=== PATIENT | male | born 1960 | race Caucasian/White ===

== ENCOUNTER 2016-06-20 20:52 | Emergency (ER) ==
[2016-06-20 21:00] VITALS: BP 170/103; TEMP 100; BMI 24.3
[2016-06-20] MEDS ORDERED: SOLU-MEDROL 125 MG IM STA (21:29)
[2016-06-20] MEDS ORDERED: CLARITIN PO STA (21:29)
--- NOTE | 2016-06-20 21:32 | ED.PDOC ---
General ED Provider: Dr. ROBYN ORR Chief Complaint: Rash Stated Complaint: Patient is a 55 year old male who comes to the ER with recurrent rash to legs, back.Has had steroids shots in the past that helped. His Current rash is 3 months old nad is Itchy. He states that he has seen founder and chief technical officer who took biopsies. States no one knows what kind of rash it is. Time Seen by Physician: 21:30 Mode of Arrival: Walk-In Information Source: Patient Exam Limitations: No limitations Primary Care Provider: JASIEL MAGDALENO Nursing and Triage Documentation Reviewed and Agree: Yes Skin Complaint Exam - Skin Rash/Itching Complaint/Exam Onset/Duration: weeks Symptoms Are: Still present Initial Severity: Moderate Current Severity: Moderate Location: Generalized Potential Exposures: Reports: Unknown Prior Treatment: Benadryl Aggravating: Reports: None Alleviating: Reports: None Associated Signs and Symptoms: Denies: Difficulty breathing, Fever, Chills Skin Findings: Present: Target lesions Differential Diagnoses: Contact Dermatitis, Scabies, Urticaria, Viral Exanthema Review of Systems - Review Of Systems Constitutional: Reports: No symptoms Eyes: Reports: No symptoms Ears, Nose, Mouth, Throat: Reports: No symptoms Respiratory: Reports: No symptoms Cardiac: Reports: No symptoms GI: Reports: No symptoms : Reports: No symptoms Musculoskeletal: Reports: No symptoms Skin: Reports: Rash, Other (itching. ) Neurological: Reports: Anxiety Endocrine: Reports: No symptoms Hematologic/Lymphatic: Reports: No symptoms All Other Systems: Reviewed and Negative Past Medical History - Past Medical History Previously Healthy: Yes Endocrine: Reports: Dyslipidemia Cardiovascular: Reports: Hypertension Respiratory: Reports: COPD Hematological: Reports: None Gastrointestinal: Reports: None Genitourinary: Reports: None Neuro/Psych: Reports: Anxiety, Depression Musculoskeletal: Reports: Arthritis, Joint Pain (chronic neck pain ) Cancer: Reports: None Other Pertinent Past Medical History: Lymes disease 2015, Treated for RMSF 3-4 years ago, history of shingles , - Surgical History General Surgical History: Reports: Appendectomy, Cholecystectomy, Orthopedic ( neck shoulder thumb, neck fusion ) - Family History Family History: Reports: Unknown - Social History Smoking Status: Current every day smoker, Light tobacco smoker Hx Substance Use: No Alcohol Screening: Occasionally Physical Exam - Physical Exam Appearance: Ill-appearing, Well-nourished Ill-appearing: Moderate Eyes: MIRZA, EOMI, Conjunctiva clear ENT: Ears normal, Nose normal, Oropharynx normal Neck: Supple Respiratory: Airway patent, Breath sounds clear, Breath sounds equal, Respirations nonlabored Cardiovascular: RRR, Pulses normal, No rub, No murmur GI/: Soft, Nontender, No masses, Bowel sounds normal, No Organomegaly Musculoskeletal: Normal strength, ROM intact, No edema, No calf tenderness Skin: Warm, Dry Neurological: Sensation intact, Motor intact, Reflexes intact, Cranial nerves intact, Alert, Oriented Psychiatric: Affect appropriate, Mood appropriate Critical Care Note - Critical Care Note Total Time (mins): 0 Course - Course Orders, Labs, Meds: Orders Category Date Time Status Loratadine [Claritin] MEDS 06/20/16 21:29 Discontinued 10 mg PO ONCE STA Methylprednisolone Sod Succ/Pf [Solu-Medrol 125 mg] MEDS 06/20/16 21:29 Discontinued 125 mg IM ONCE STA Medications Discontinued Medications Generic Name Dose Route Start Last Admin Trade Name Freq PRN Reason Stop Dose Admin Loratadine 10 mg 06/20/16 21:29 06/20/16 21:38 Claritin PO 06/20/16 21:30 10 mg ONCE STA Administration Methylprednisolone Sodium Succinate 125 mg 06/20/16 21:29 06/20/16 21:39 Solu-Medrol 125 Mg IM 06/20/16 21:30 125 mg ONCE STA Administration Vital Signs: Temp Pulse Resp BP Pulse Ox 06/20/16 20:54 100.0 F H 71 20 170/103 H 96 Departure - Departure Time of Disposition: 21:43 Disposition: HOME SELF-CARE Discharge Problem: Pruritic rash Instructions: Dermatitis (ED) Condition: Good Pt referred to PMD for follow-up: Yes Additional Instructions: Take medications as prescribed. Follow up with PCP in 3 day Prescriptions: Methylprednisolone [Medrol Dosepak] 4 mg PO DIRECTED #1 pkg Allergies/Adverse Reactions: Allergies bacitracin [From Neosporin ([id number])] Adverse Reaction (Verified 05/05/16 09:43) neomycin [From Neosporin ([id number])] Adverse Reaction (Verified 05/05/16 09 :43) polymyxin B [From Neosporin ([id number]-htf-[id number])] Adverse Reaction (Verified 09:43) Tetanus Vaccines and Toxoid [Tetanus Vaccines & Toxoid] Adverse Reaction ( Verified 05/05/16 09:43) Home Medications: Ambulatory Orders Clonazepam 0.5 mg PO TID 01/26/15 Methylprednisolone [Medrol Dosepak] 4 mg PO DIRECTED #1 pkg 06/20/16 Disposition Discussed With: Patient
== END 2016-06-20 21:57 | disposition home or self-care (01) ==
LOC: ED 20:52
DX: R21 Rash and other nonspecific skin eruption (principal); L29.9 Pruritus, unspecified; F17.210 Nicotine dependence, cigarettes, uncomplicated
CPT/HCPCS: 96372; 99282

== ENCOUNTER 2016-08-13 14:24 | Emergency (ER) ==
[2016-08-13 14:24] VITALS: BMI 24.3
[2016-08-13 14:28] VITALS: BP 159/84; TEMP 97.8
[2016-08-13] MEDS ORDERED: MORPHINE 4 MG/ML SYRINGE IM STA (16:35)
[2016-08-13] MEDS ORDERED: ZOFRAN 4 MG/2 ML IM STA (16:35)
[2016-08-13] MEDS ORDERED: DECADRON 4 MG/ML SDV IM STA (16:40)
[2016-08-13] MEDS ORDERED: BENADRYL IM STA (16:42)
--- NOTE | 2016-08-13 17:18 | ED.PDOC ---
General ED Provider: Dr. GARRETT COVARRUBIAS Chief Complaint: Rash Stated Complaint: rash Time Seen by Physician: 14:30 Mode of Arrival: Walk-In Information Source: Patient Exam Limitations: No limitations Nursing and Triage Documentation Reviewed and Agree: Yes Skin Complaint Exam - Skin Rash/Itching Complaint/Exam Symptoms Are: Still present Initial Severity: Mild Current Severity: None Potential Exposures: Reports: Unknown Aggravating: Reports: None Alleviating: Reports: None Associated Signs and Symptoms: Denies: Difficulty breathing, Fever, Chills Related History: Similar episode Differential Diagnoses: Allergic Reaction Review of Systems - Review Of Systems Constitutional: Reports: No symptoms Eyes: Reports: No symptoms Ears, Nose, Mouth, Throat: Reports: No symptoms Respiratory: Reports: No symptoms Cardiac: Reports: No symptoms GI: Reports: No symptoms : Reports: No symptoms Musculoskeletal: Reports: No symptoms Skin: Reports: Rash Neurological: Reports: No symptoms Endocrine: Reports: No symptoms Hematologic/Lymphatic: Reports: No symptoms All Other Systems: Reviewed and Negative Past Medical History - Past Medical History Previously Healthy: Yes Endocrine: Reports: Dyslipidemia Cardiovascular: Reports: Hypertension Respiratory: Reports: COPD Hematological: Reports: None Gastrointestinal: Reports: None Genitourinary: Reports: None Neuro/Psych: Reports: Anxiety, Depression Musculoskeletal: Reports: Arthritis, Joint Pain (chronic neck pain ) Cancer: Reports: None Other Pertinent Past Medical History: Lymes disease 2015, Treated for RMSF 3-4 years ago, history of shingles , - Surgical History General Surgical History: Reports: Appendectomy, Cholecystectomy, Orthopedic ( neck shoulder thumb, neck fusion ) - Family History Family History: Reports: Unknown - Social History Smoking Status: Current every day smoker, Light tobacco smoker Hx Substance Use: No Alcohol Screening: Occasionally Physical Exam - Physical Exam Appearance: Well-appearing, No pain distress, Well-nourished Eyes: MIRZA, EOMI, Conjunctiva clear ENT: Ears normal, Nose normal, Oropharynx normal Respiratory: Airway patent, Breath sounds clear, Breath sounds equal, Respirations nonlabored Cardiovascular: RRR, Pulses normal, No rub, No murmur GI/: Soft, Nontender, No masses, Bowel sounds normal, No Organomegaly Musculoskeletal: Normal strength, ROM intact, No edema, No calf tenderness Skin: Warm, Dry (macular rash arms legs ) Neurological: Sensation intact, Motor intact, Reflexes intact, Cranial nerves intact, Alert, Oriented Psychiatric: Affect appropriate, Mood appropriate Critical Care Note - Critical Care Note Total Time (mins): 0 Course - Course Orders, Labs, Meds: Orders Category Date Time Status Dexamethasone 4 mg/ml Inj [Decadron 4 mg/ml Sdv] MEDS 08/13/16 16:40 Discontinued 4 mg IM ONCE STA Diphenhydramine Inj [Benadryl] MEDS 08/13/16 16:42 Discontinued 25 mg IM ONCE STA Medications Discontinued Medications Generic Name Dose Route Start Last Admin Trade Name Freq PRN Reason Stop Dose Admin Dexamethasone Sodium Phosphate 4 mg 08/13/16 16:40 Decadron 4 Mg/Ml Sdv IM 08/13/16 16:41 ONCE STA Diphenhydramine HCl 25 mg 08/13/16 16:42 Benadryl IM 08/13/16 16:43 ONCE STA Vital Signs: Temp Pulse Resp BP Pulse Ox 08/13/16 14:24 97.8 F 69 20 159/84 H 95 Departure - Departure Time of Disposition: 17:17 Disposition: HOME SELF-CARE Discharge Problem: Pruritic rash Instructions: Acute Rash (ED) Condition: Good Pt referred to PMD for follow-up: No Additional Instructions: Please call your Family Physician as soon as possible to schedule a follow-up appointment. Prescriptions: Hydrocodone/Acetaminophen [Bethesda 5-325 Tablet] 1 each PO Q6HR PRN #20 tablet PRN Reason: PAIN Allergies/Adverse Reactions: Allergies bacitracin [From Neosporin ([id number])] Adverse Reaction (Verified 08/13/16 14:28) neomycin [From Neosporin ([id number]-ivk-[id number])] Adverse Reaction (Verified 08/13/16 14 :28) polymyxin B [From Neosporin ([id number]-unl-ypizn)] Adverse Reaction (Verified 14:28) Tetanus Vaccines and Toxoid [Tetanus Vaccines & Toxoid] Adverse Reaction ( Verified 08/13/16 14:28) Home Medications: Ambulatory Orders Clonazepam 0.5 mg PO TID 01/26/15 Hydrocodone/Acetaminophen [Bethesda 5-325 Tablet] 1 each PO Q6HR PRN #20 tablet
== END 2016-08-13 17:45 | disposition home or self-care (01) ==
LOC: ED 14:24
DX: R21 Rash and other nonspecific skin eruption (principal); L29.9 Pruritus, unspecified; F17.210 Nicotine dependence, cigarettes, uncomplicated
CPT/HCPCS: 96372; 99283

== ENCOUNTER 2016-11-19 10:18 | Inpatient (IN) ==
[2016-11-19 10:19] VITALS: BMI 24.3
--- NOTE | 2016-11-19 10:46 | ED.PDOC ---
General ED Provider: Dr. GARRETT COVARRUBIAS Chief Complaint: Bite Stated Complaint: dog bite Time Seen by Physician: 10:20 (dog bite of te right hand 2 days ago) Mode of Arrival: Walk-In Information Source: Patient Exam Limitations: No limitations Nursing and Triage Documentation Reviewed and Agree: Yes Musculoskeletal Complaint Exam - Hand/Wrist Complaint/Exam Location of Pain: Reports: Right, Hand Mechanism of Injury: Reports: Trauma (dog bite righhand ) Onset/Duration: 2 days Symptoms Are: Still present Onset of Pain: Reports: Days Initial Severity: Moderate Current Severity: Moderate Location: Reports: Discrete (right hand see photos) Character: Reports: Dull, Aching, Spasmodic Alleviating: Reports: Rest Aggravating: Reports: Movement Associated Signs and Symptoms: Reports: Swelling, Redness. Denies: Bruising, Fever, Weakness, Numbness, Tingling Dominant Hand: Right Related Surgical History: Reports: None Hand/Wrist Findings: Present: Swelling Compartment Syndrome Risk Factors: Present: Pain Differential Diagnoses: Cellulitis Review of Systems - Review Of Systems Constitutional: Reports: No symptoms Eyes: Reports: No symptoms Ears, Nose, Mouth, Throat: Reports: No symptoms Respiratory: Reports: No symptoms Cardiac: Reports: No symptoms GI: Reports: No symptoms : Reports: No symptoms Musculoskeletal: Reports: Other (dog bite right hand see photos) Skin: Reports: No symptoms Neurological: Reports: No symptoms Endocrine: Reports: No symptoms Hematologic/Lymphatic: Reports: No symptoms All Other Systems: Reviewed and Negative Past Medical History - Past Medical History Previously Healthy: Yes Endocrine: Reports: Dyslipidemia Cardiovascular: Reports: Hypertension Respiratory: Reports: COPD Hematological: Reports: None Gastrointestinal: Reports: None Genitourinary: Reports: None Neuro/Psych: Reports: Anxiety, Depression Musculoskeletal: Reports: Arthritis, Joint Pain (chronic neck pain ) Cancer: Reports: None Other Pertinent Past Medical History: Lymes disease 2015, Treated for RMSF 3-4 years ago, history of shingles , - Surgical History General Surgical History: Reports: Appendectomy, Cholecystectomy, Orthopedic ( neck shoulder thumb, neck fusion ) - Family History Family History: Reports: Unknown - Social History Smoking Status: Current every day smoker, Light tobacco smoker Hx Substance Use: No Alcohol Screening: None - Immunizations Tetanus Shot up to Date: No Physical Exam - Physical Exam Appearance: Well-appearing, No pain distress, Well-nourished Eyes: MIRZA, EOMI, Conjunctiva clear ENT: Ears normal, Nose normal, Oropharynx normal Respiratory: Airway patent, Breath sounds clear, Breath sounds equal, Respirations nonlabored Cardiovascular: RRR, Pulses normal, No rub, No murmur GI/: Soft, Nontender, No masses, Bowel sounds normal, No Organomegaly Musculoskeletal: Limited ROM ( due to pain edema right hand see photos) Skin: Warm, Dry, Normal color Neurological: Sensation intact, Motor intact, Reflexes intact, Cranial nerves intact, Alert, Oriented Psychiatric: Affect appropriate, Mood appropriate Critical Care Note - Critical Care Note Total Time (mins): 0 Course - Course Vital Signs: Temp Pulse Resp BP Pulse Ox 11/19/16 10:19 98.5 F 86 20 160/82 H 95 Departure - Departure Time of Disposition: 10:48 Disposition: HOME SELF-CARE Discharge Problem: Cellulitis of right hand Instructions: Cellulitis (ED) Condition: Good Pt referred to PMD for follow-up: No Additional Instructions: Please call your Family Physician as soon as possible to schedule a follow-up appointment. Allergies/Adverse Reactions: Allergies bacitracin [From Neosporin ([id number])] Adverse Reaction (Verified 11/19/16 10:25) neomycin [From Neosporin ([id number]-qtb-[id number])] Adverse Reaction (Verified 11/19/16 10 :25) polymyxin B [From Neosporin (jga-fvx-siptt)] Adverse Reaction (Verified 10:25) Tetanus Vaccines and Toxoid [Tetanus Vaccines & Toxoid] Adverse Reaction ( Verified 11/19/16 10:25) Home Medications: Ambulatory Orders 1 [No Reported Medications] 11/19/16 Disposition Discussed With: Patient
[2016-11-19] MEDS ORDERED: ROCEPHIN 1 GM in SODIUM CHLORIDE 50 ML IV STA (10:58)
[2016-11-19] MEDS ORDERED: SODIUM CHLORIDE 1,000 ML IV SCH (11:00)
[2016-11-19] MEDS ORDERED: ROCEPHIN ONE (11:18)
[2016-11-19] MEDS ORDERED: MORPHINE 4 MG/ML SYRINGE IVP STA (11:53)
[2016-11-19] MEDS: TORADOL IVP PRN (12:13)
[2016-11-19 12:25] LABS: BASOPHILS # (AUTO) 0.1 K/uL (0-0.2); BASOPHILS % (AUTO) 0.6 % (0.0-3.0); EOSINOPHILS # (AUTO) 0.2 K/ul (0.0-0.7); EOSINOPHILS % (AUTO) 1.9 % (0.0-7.0); HEMATOCRIT 47.8 % (42.0-52.0); HEMOGLOBIN 16.4 g/dl (14.0-18.0); IMMATURE GRANULOCYTE % (AUTO) 0.6 % (0.0-5.0); LYMPHOCYTES # (AUTO) 2.3 K/uL (0.60-3.4); LYMPHOCYTES % (AUTO) 26.8 (10.0-50.0); MEAN CORPUSCULAR HEMOGLOBIN 29.7 pg (27.0-31.0); MEAN CORPUSCULAR HGB CONC 34.3 (31.8-35.4); MEAN CORPUSCULAR VOLUME 86.4 fl (80.0-94.0); MONOCYTES # (AUTO) 0.9 K/uL (0.4-2.0); MONOCYTES % (AUTO) 10.6 (0-10); NEUTROPHILS # (AUTO) 5.1 K/ul (2.0-6.9); NEUTROPHILS % (AUTO) 59.5; PLATELET COUNT 207 10^3/uL (140-440); RED BLOOD COUNT 5.53 10^6/ul (4.70-6.10); WHITE BLOOD COUNT 8.61 K/ul (4.2-10.2)
[2016-11-19] MEDS: CLEOCIN 300 MG in SODIUM CHLORIDE 100 ML IV SCH ×3 (12:41→23:12)
[2016-11-19 12:56] LABS: ALBUMIN 3.6 g/dL (3.4-5.0); ALBUMIN/GLOBULIN RATIO 0.9; ANION GAP 13.9; BILIRUBIN,TOTAL 0.43 mg/dL (0.00-1.20); BUN/CREATININE RATIO 11.76; CALCIUM 9.6 mg/dL (8.2-10.2); CREATININE 0.85 mg/dL (0.60-1.10); POTASSIUM 3.9 mmol/L (3.5-5.1); TOTAL PROTEIN 7.6 g/dL (6.4-8.2)
[2016-11-19 13:04] LABS: ERYTHROCYTE SEDIMENTATION RATE 24 mm/hr (0-15); ESR INTERNAL QC INTERNAL QC VALID
[2016-11-19] MEDS: ZOFRAN 4 MG/2 ML IVP SCH ×2 (14:50→17:33)
--- NOTE | 2016-11-19 15:13 | CT ---
Exam: CT of the right hand with intravenous contrast. Comparison: None available. Reason for exam: Dog bite with cellulitis. FINDINGS: No acute fracture or dislocation. Degenerative disease is seen within the wrist. There are mild inflammatory changes seen within the dorsal subcutaneous soft tissues. No discrete fluid c ollection or abscess formation. The cortices of the right hand appear intact. Impression: 1. No acute fracture or dislocation in the right hand. 2. No discrete fluid collection or abscess formation. 3. Inflammatory changes in the subcutaneous fat. If clinical concern exists for osteomyelitis, MRI may be performed.
[2016-11-19] MEDS: SODIUM CHLORIDE 1,000 ML IV SCH (19:35)
[2016-11-20] MEDS: TORADOL IVP PRN ×2 (01:35→13:23)
[2016-11-20 04:55] LABS: BASOPHILS # (AUTO) 0.1 K/uL (0-0.2); BASOPHILS % (AUTO) 1.2 % (0.0-3.0); EOSINOPHILS # (AUTO) 0.2 K/ul (0.0-0.7); EOSINOPHILS % (AUTO) 2.4 % (0.0-7.0); HEMATOCRIT 47.6 % (42.0-52.0); HEMOGLOBIN 15.8 g/dl (14.0-18.0); IMMATURE GRANULOCYTE % (AUTO) 1.3 % (0.0-5.0); LYMPHOCYTES # (AUTO) 2.4 K/uL (0.60-3.4); LYMPHOCYTES % (AUTO) 34.6 (10.0-50.0); MEAN CORPUSCULAR HGB CONC 33.2 (31.8-35.4); MEAN CORPUSCULAR VOLUME 87.5 fl (80.0-94.0); MONOCYTES # (AUTO) 0.7 K/uL (0.4-2.0); MONOCYTES % (AUTO) 9.7 (0-10); NEUTROPHILS # (AUTO) 3.5 K/ul (2.0-6.9); NEUTROPHILS % (AUTO) 50.8; PLATELET COUNT 209 10^3/uL (140-440); RED BLOOD COUNT 5.44 10^6/ul (4.70-6.10); WHITE BLOOD COUNT 6.79 K/ul (4.2-10.2)
[2016-11-20 05:19] LABS: ALBUMIN 3.2 g/dL (3.4-5.0); ALBUMIN/GLOBULIN RATIO 0.82; ANION GAP 12.4; BILIRUBIN,TOTAL 0.32 mg/dL (0.00-1.20); CALCIUM 8.9 mg/dL (8.2-10.2); POTASSIUM 4.4 mmol/L (3.5-5.1); TOTAL PROTEIN 7.1 g/dL (6.4-8.2)
[2016-11-20] MEDS: ZOFRAN 4 MG/2 ML IVP SCH ×2 (05:47)
[2016-11-20] MEDS: CLEOCIN 300 MG in SODIUM CHLORIDE 100 ML IV SCH ×4 (05:54→23:26)
[2016-11-20] MEDS: ZESTRIL PO SCH (08:36)
[2016-11-20] MEDS ORDERED: ZOFRAN 4 MG/2 ML IVP PRN (09:34)
[2016-11-20] MEDS: SODIUM CHLORIDE 1,000 ML IV SCH (21:36)
[2016-11-21 04:25] LABS: BASOPHILS # (AUTO) 0.1 K/uL (0-0.2); BASOPHILS % (AUTO) 1.1 % (0.0-3.0); EOSINOPHILS # (AUTO) 0.2 K/ul (0.0-0.7); EOSINOPHILS % (AUTO) 2.8 % (0.0-7.0); HEMATOCRIT 46.7 % (42.0-52.0); HEMOGLOBIN 15.6 g/dl (14.0-18.0); IMMATURE GRANULOCYTE % (AUTO) 1.2 % (0.0-5.0); LYMPHOCYTES # (AUTO) 2.3 K/uL (0.60-3.4); LYMPHOCYTES % (AUTO) 29.9 (10.0-50.0); MEAN CORPUSCULAR HEMOGLOBIN 29.2 pg (27.0-31.0); MEAN CORPUSCULAR HGB CONC 33.4 (31.8-35.4); MEAN CORPUSCULAR VOLUME 87.5 fl (80.0-94.0); MONOCYTES # (AUTO) 0.7 K/uL (0.4-2.0); MONOCYTES % (AUTO) 9.7 (0-10); NEUTROPHILS # (AUTO) 4.2 K/ul (2.0-6.9); NEUTROPHILS % (AUTO) 55.3; PLATELET COUNT 198 10^3/uL (140-440); RED BLOOD COUNT 5.34 10^6/ul (4.70-6.10); WHITE BLOOD COUNT 7.52 K/ul (4.2-10.2)
[2016-11-21 04:48] LABS: ALBUMIN 3.1 g/dL (3.4-5.0); ALBUMIN/GLOBULIN RATIO 0.84; ANION GAP 12.8; BILIRUBIN,TOTAL 0.34 mg/dL (0.00-1.20); BUN/CREATININE RATIO 12.74; CALCIUM 8.7 mg/dL (8.2-10.2); CREATININE 1.02 mg/dL (0.60-1.10); POTASSIUM 4.8 mmol/L (3.5-5.1); TOTAL PROTEIN 6.8 g/dL (6.4-8.2)
[2016-11-21] MEDS: CLEOCIN 300 MG in SODIUM CHLORIDE 100 ML IV SCH (05:19)
[2016-11-21] MEDS: ZESTRIL PO SCH (08:17)
--- NOTE | 2016-11-21 10:17 | PCM.PROG ---
Attending Provider: ATTENDING PROVIDER: Dr. DIANN MAHER DATE OF SERVICE: 11/21/16 SUBJECTIVE: This 56 year old WHITE/ M was hospitalized 11/19/16 with dog bite on right hand with cellulitis. The swelling and redness has drastically decreased. The hand and fingers have normal motion. No fever, no chills. The patient is ready to go home. REVIEW OF SYSTEMS: CONSTITUTIONAL: No fever, no chills. ENDOCRINE: No weight loss or weight gain. HEENT: No sinus drainage, no sore throat. CVS: No angina symptoms. No CHF symptoms. No palpitations. No atypical chest pain for CAD. No shortness of breath. RESPIRATORY: No cough, no hemoptysis. GI: No melena. No abdominal pain. No nausea, no vomiting. : No hematuria. No polyuria. SKIN: No rash. Dorsum of right hand bite angel are dry and scabbed. No redness or swelling. MUSCULOSKELETAL: No pain. 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 No headache. No double vision. PSYCHIATRIC: Not anxious; no depression. No suicidal thoughts. No homicidal thoughts. PHYSICAL EXAMINATION: GENERAL: Sitting on the side of the bed in no distress. VITAL SIGNS: Temperature 98.1 F, Pulse 72, Respiratory Rate 20, BP 138/86, Pulse Ox 93% HEENT: Normocephalic, atraumatic. Mucosa is dry, pallor positive. NECK: No JVP, no carotid bruit. No lymphadenopathy. CARDIAC: S1, S2, no S3. No murmur, gallop or regurgitation. LUNGS: Clear to auscultation. ABDOMEN: Soft, non-tender. Bowel sounds active. No rigidity, guarding or CVA tenderness. EXTREMITIES: Dorsum of right hand there is no swelling, no redness. Bite angel are dry and scabbed. Range of motion of wrist is normal. No pain with movement of wrist, fingers or hand. NEUROLOGIC: Awake, alert and oriented x3. LYMPHATIC: No palpable lymph nodes SKIN: Not dry. Intact. MUSCULOSKELETAL: No joint swelling. LAB REVIEW: 11/21/16 04:10 11/21/16 04:10 11/21/16 04:10: WBC 7.52, RBC 5.34, Hgb 15.6, Hct 46.7, MCV 87.5, MCH 29.2, MCHC 33.4, RDW Coeff of Homar 13.4, Plt Count 198, Immature Gran % (Auto) 1.2, Neut % (Auto) 55.3, Lymph % (Auto) 29.9, Caroline % (Auto) 9.7, Eos % (Auto) 2.8, Baso % (Auto) 1.1, Immature Gran # (Auto) 0.1, Neut # 4.2, Lymph # 2.3, Caroline # 0.7, Eos # 0.2, Baso # 0.1, Sodium 139, Potassium 4.8, Chloride 107, Carbon Dioxide 24, Anion Gap 12.8, BUN 13, Creatinine 1.02, Estimated GFR (MDRD) 75.00 , BUN/Creatinine Ratio 12.74, Glucose 102 H, Calcium 8.7, Total Bilirubin 0.34, AST 20, ALT 18, Alkaline Phosphatase 67, Total Protein 6.8, Albumin 3.1 L, Globulin 3.7, Albumin/Globulin Ratio 0.84 ASSESSMENT: 1. Right hand dog bite with cellulitis. 2. Hypertension. 3. Nicotine use. PLAN: 1. Discharge home. 2. Augmentin 500 mg b.i.d. times 7 days. 3. Will followup in [facility] on Saturday. 4. Continue to move hand/do hand exercises, and keep elevated. 5. In case of increased redness or pain he is to return to the Emergency Department [facility]. 6. Lisinopril 10 mg daily. Plan and coordination of the patient's care discussed in the presence of Piano Regulator and nurse. CONDITION: Stable SCRIBED BY: KAREEN BAÑUELOS Bereavement Counselor scribed while in presence of service performed by Dr. DIANN MAHER on 11/21/16 ([id number])
[2016-11-21 10:37] VITALS: BP 173/83; TEMP 97.1
--- NOTE | 2016-12-06 15:19 | HP ---
DATE OF SERVICE: 11/19/16 REASON FOR HOSPITALIZATION/ HISTORY OF PRESENT ILLNESS: The patient is a 56 year old male who presented to the emergency room for right hand dog bite. Gradually the pain and redness was getting worse and took some Tylenol, did not help. The patient came to the emergency room today as patient was having trouble with the more pain and redness and warmness. The patient was seen by Dr. Curtis in the emergency room. The wound on the dorsum of the hand spreading up as crossing the wrist joint and going to the forearm, tender and warm to touch. In review of the patient having infection in the hand the patient was admitted to the hospital for the IV antibiotics, rule out osteomyelitis. REVIEW OF SYSTEMS: CONSTITUTIONAL: No night sweats. No fatigue, malaise, lethargy. No fever or chills. HEENT: Eyes: No visual changes. No eye pain. No eye discharge. ENT: No runny nose. No epistaxis. No sinus pain. No sore throat. No odynophagia. No ear pain. No congestion. RESPIRATORY: No cough, no congestion. No hemoptysis. CARDIOVASCULAR: No angina symptoms. No CHF symptoms. No atypical chest pain for CAD. No palpitations. No shortness of breath. GASTROINTESTINAL: No abdominal pain. No nausea or vomiting. No diarrhea or constipation. No hematemesis. No hematochezia. GENITOURINARY: No urgency. No frequency. No dysuria. No hematuria. No obstructive symptoms. No discharge. No pain. No significant abnormal bleeding. MUSCULOSKELETAL: No musculoskeletal pain. No joint swelling. No arthritis. Pain, redness and swelling of right hand. NEUROLOGICAL: No headache. No neck pain. No syncope. No seizures. No dizziness. PSYCHIATRIC: Not anxious. No depression. No suicidal thoughts. No homicidal thoughts. SKIN: No rash. No lesions. No wounds. ENDOCRINE: No unexplained weight loss. No weight gain. HEMATOLOGIC/LYMPHATIC: No anemia. No purpura. No petechiae. No prolonged or excessive bleeding. No palpable lymph nodes. PERSONAL/FAMILY/SOCIAL HISTORY: The patient does smoke half pack a day. No alcohol. substance uses marijuana but no IV drugs. Family history is significant for coronary artery disease and cancer PAST MEDICAL/SURGICAL PROBLEMS: COPD Sleep apnea GERD Osteoarthritis Depression Anxiety Coronary artery disease Hyperlipidemia MEDICATIONS: None ALLERGIES: Bacitracin Neomycin Polymyxin Tetanus Vaccine PHYSICAL EXAMINATION: VITAL SIGNS: Blood pressure 160/82, respiratory rate 20, heart rate 86 and temperature 98.5. HEENT: Head normocephalic, atraumatic. Eyes: Extraocular muscles are intact. Pupils are equal, round and reactive to light and accommodation. Ears: No lesions. Nose appeared normal. Throat: No exudate or erythema. Mucosa dry. NECK: Supple. No JVD, no carotid bruit. No lymphadenopathy or thyromegaly. LUNGS: Clear to auscultation. Percussion note normal. Chest symmetrical. HEART: S1, S2, no S3. No murmurs. No cyanosis or clubbing. No ascites. Pulses: Dorsalis pedis and posterior tibial pulses +1 to +2 both sides. ABDOMEN: Soft. Nontender. Bowel sounds active. No CVA tenderness. No mass felt. EXTREMITIES: No edema. Range of motion somewhat decreased. The patient does complain pain with the range of motion. Dorsum of the hand complete swollen and red, tender to touch. The redness is going into the distal 2/3 of the dorsum of the forearm, superficial redness and swollen. NEUROLOGIC: No focal deficit. Cranial nerves II through XII are grossly intact. No headache, no double vision or headache. SKIN: Not dry. Intact. Turgor - normal. LYMPHATIC: No palpable lymph nodes/no lymphedema. MUSCULOSKELETAL: Normal joints with no swelling. Muscle tone is normal. LABS: WBC 8.61, hgb 16.4, hct 47.8, plt count 207, ESR 24, sodium 137, potassium 3.9, chloride 103, bicarb 24, BUN 10, creatinine 0.85. CT of the right hand showed the superficial cellulitis ASSESSMENT: 1. Right hand and forearm cellulitis, from dog bite 2. History of hypertension 3. Dyslipidemia 4. Sleep apnea not on CPAP 5. Ostearthritis 6. Anxiety PLAN: 1. Admit patient to the regular floor 2. Will start the patient on the Rocephin 1 gram daily and Clindamycin 3. Toradol for pain 4. IV fluids 5. Regular diet Will follow the patient in daily rounds. TIME SPENT: More than 70 minutes. MTDD
--- NOTE | 2016-12-06 15:29 | PN ---
DATE OF SERVICE: 11/20/16 SUBJECTIVE: The patient was admitted with the right hand cellulitis after a dog bite. No fever. Redness is somewhat better but still has pain when he moves the hand. REVIEW OF SYSTEMS: CONSTITUTIONAL: No fever, no chills. HEENT: Normal. ENDOCRINE: No weight gain, no weight loss. CVS: No angina symptoms. No CHF symptoms. No palpitations. No atypical chest pain for CAD. No shortness of breath. No PND, no orthopnea. RESPIRATORY: No cough, no hemoptysis. GI: No nausea, no vomiting. No abdominal pain. : No hematuria. No polyuria. MUSCULOSKELETAL:. No joint swelling. PSYCHIATRIC: Not anxious. No depression. No suicidal thoughts. No homicidal thoughts. SKIN: Intact. No rash. PHYSICAL EXAMINATION: V/S: Blood pressure 142/82, respiratory rate 18, heart rate 98 and temperature 98.2. HEENT: Normocephalic, atraumatic. Mucosa dry. Pallor positive. No icterus. NECK: Supple. No JVD, no carotid bruit. No lymphadenopathy. LUNGS: Clear to auscultation. No rales or rhonchi. HEART: S1, S2 normal. No S3. No murmur, gallop or regurgitation. ABDOMEN: Soft, nontender. Bowel sounds active. No rigidity. No rebound or guarding. No CVA tenderness. EXTREMITIES: No clubbing, cyanosis or pedal edema. Right hand examination dorsum of the hand swelling, heat is present, warmness is present, redness is decreased. Range of motion is decreased. MUSCULOSKELETAL: No joint swelling. NEUROLOGIC: Awake, alert, oriented times three. No focal deficit. LYMPHATIC: No lymph nodes palpable. SKIN: Intact. LABS: WBC 6.79, hgb 15.8, hct 47.6, plt count 208, sodium 139, potassium 4.4, chloride 104, bicarb 27, BUN 12, creatinine 1.0. ASSESSMENT: 1. Right hand cellulitis, status post dog bite 2. Hypertension PLAN: 1. Continue the Clindamycin and Rocephin 2. Toradol for pain 3. Will start the patient on Lisinopril 10mg PO daily 3. Out of bed to chair activity as tolerated 4. No prophylaxis as patient is active. TIME SPENT: More than 30 minutes MTDD
--- NOTE | 2016-12-06 15:48 | DS ---
DATE OF SERVICE: 11/21/16 FINAL DIAGNOSIS: 1. Right hand cellulitis, dorsum of the hand superficial tendonitis secondary to the dog bite. The dog was not immunized and was available for the observation , it was a friends dog 2. Hypertension 3. GERD 4. Anxiety, not on any medication 5. Nicotine use DISCHARGE INSTRUCTIONS: Discharge the patient home. Followup at the [facility] within one week. Please take the antibiotics with food and make sure to eat some yogurt as antibiotics can do diarrhea. MEDICATIONS AT DISCHARGE/NEW PRESCRIPTIONS: Augmentin 500mg twice a day for 7 days Lisinopril 10mg PO daily DIET INSTRUCTIONS: Cardiac and healthy ACTIVITY: As tolerated SMOKING: Current every day smoker, light tobacco smoker DISEASE SPECIFIC EDUCATION: Hypertension Risk of stroke been discussed and verbalized understanding. HOSPITAL COURSE: The patient came to the emergency room with sustaining a dog bite after three days the hand was swollen, redness and tender on the dorsum of the hand and it was spreading the dorsum of the forearm and was having difficulty moving and flexing the fingers. The patient was seen by Dr. Curtis in the emergency room. WBC was normal. In review of early tendonitis symptoms the patient was admitted to the hospital. CT scan showed the cellulitis. The patient was started on the Rocephin and Clindamycin. On further questioning the patient did says that the dog was provoked, he was trying to pet the dog and the bit him and the patient' s friend's dog and the dog did not have immunization update but as per him the dog was not behaving iritically and dog was available for the observation. With Rocephin and Clindamycin the swelling and redness were gradually getting better. Toradol was given for the pain. Blood pressure was elevated at 150 systolic so at that time Lisinopril was started which did help for the blood pressure. Gradually the redness and swelling and the range of motion in the wrist joint became normal. As of today the dog bite sites are scabbed and the range of motion in the wrist is normal with no swelling or redness. TIME SPENT: More than 55 minutes. MTDD
== END 2016-11-21 10:40 | disposition home or self-care (01) | DRG 603 ==
LOC: ED 10:18 → MEDSURG A 11:08
PROVIDERS: ADMIT Emergency Medicine; ATTEND Emergency Medicine
DX: L03.113 Cellulitis of right upper limb (principal); S61.451A Open bite of right hand, initial encounter; I10 Essential (primary) hypertension; K21.9 Gastro-esophageal reflux disease without esophagitis; F41.9 Anxiety disorder, unspecified; E78.5 Hyperlipidemia, unspecified; G47.30 Sleep apnea, unspecified; M19.90 Unspecified osteoarthritis, unspecified site; F17.200 Nicotine dependence, unspecified, uncomplicated; W54.0XXA Bitten by dog, initial encounter; Z99.89 Dependence on other enabling machines and devices
CPT/HCPCS: 36415; 80053; 85025; 85651; 99283

== ENCOUNTER 2017-03-15 12:41 | Emergency (ER) ==
[2017-03-15 12:55] VITALS: BP 175/99; TEMP 98.7; BMI 25.8
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
[2017-03-15] MEDS ORDERED: ZOFRAN 4 MG/2 ML IVP STA (14:02)
[2017-03-15] MEDS ORDERED: MORPHINE 2 MG/ML SYRINGE IVP STA (14:02)
[2017-03-15 14:18] LABS: BASOPHILS # (AUTO) 0.1 K/uL (0-0.2); BASOPHILS % (AUTO) 0.7 % (0.0-3.0); EOSINOPHILS # (AUTO) 0.2 K/ul (0.0-0.7); EOSINOPHILS % (AUTO) 2.2 % (0.0-7.0); HEMATOCRIT 47.1 % (42.0-52.0); HEMOGLOBIN 16.4 g/dl (14.0-18.0); IMMATURE GRANULOCYTE % (AUTO) 0.8 % (0.0-5.0); LYMPHOCYTES # (AUTO) 1.8 K/uL (0.60-3.4); LYMPHOCYTES % (AUTO) 23.4 (10.0-50.0); MEAN CORPUSCULAR HEMOGLOBIN 29.9 pg (27.0-31.0); MEAN CORPUSCULAR HGB CONC 34.8 (31.8-35.4); MEAN CORPUSCULAR VOLUME 85.9 fl (80.0-94.0); MONOCYTES # (AUTO) 0.8 K/uL (0.4-2.0); MONOCYTES % (AUTO) 10.6 (0-10); NEUTROPHILS # (AUTO) 4.7 K/ul (2.0-6.9); NEUTROPHILS % (AUTO) 62.3; PLATELET COUNT 225 10^3/uL (140-440); RED BLOOD COUNT 5.48 10^6/ul (4.70-6.10); WHITE BLOOD COUNT 7.57 K/ul (4.2-10.2)
[2017-03-15 14:36] LABS: ALBUMIN 3.7 g/dL (3.4-5.0); ALBUMIN/GLOBULIN RATIO 0.88; ANION GAP 11.7; BILIRUBIN,TOTAL 0.7 mg/dL (0.00-1.20); BUN/CREATININE RATIO 11.88; CALCIUM 9.5 mg/dL (8.2-10.2); CREATININE 1.01 mg/dL (0.60-1.10); POTASSIUM 3.7 mmol/L (3.5-5.1); TOTAL PROTEIN 7.9 g/dL (6.4-8.2)
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
--- NOTE | 2017-03-15 15:34 | CT ---
EXAM: CT ABDOMEN AND PELVIS HISTORY: Injury, pain TECHNIQUE: CT abdomen and pelvis with intravenous contrast. Images were reconstructed using 5 mm sec tion thickness. Reformations were prepared. 75 mL Omnipaque. COMPARISON: None FINDINGS: Liver is unremarkable. Splenic calcifications consistent with old granulomatous disease. Gallbladde r is absent. Pancreas and adrenal glands appear normal. Kidneys are within normal limits. Mild ath erosclerotic disease. Stomach is within normal limits. The appendix has been removed. Normal bowel gas pattern. Mild to moderate sigmoid diverticulosis. Urinary bladder is intact. There is no evidence of prostate enlarg ement. No ascites. Bilateral fatty inguinal hernias, small on the left and moderate on the right. The bones reveal no a cute deformity. No pneumoperitoneum. See also same day CT thorax report. IMPRESSION: 1. No acute injuries identified. 2. Mild to moderate sigmoid diverticulosis. 3. Mild atherosclerotic disease. 4. Inguinal hernias.
== END 2017-03-15 15:50 | disposition home or self-care (01) ==
LOC: ED 12:41
DX: S22.31XA Fracture of one rib, right side, initial encounter for closed fracture (principal); V19.9XXA Pedal cyclist (driver) (passenger) injured in unspecified traffic accident, initial encounter; F17.210 Nicotine dependence, cigarettes, uncomplicated; I10 Essential (primary) hypertension; E78.5 Hyperlipidemia, unspecified
CPT/HCPCS: 36415; 80053; 85025; 96372; 99283

== ENCOUNTER 2017-04-02 08:31 | Outpatient (CLI) ==
[2017-03-19 10:24] VITALS: BMI 26.6
--- NOTE | 2017-04-02 08:59 | DI ---
EXAM: PA and lateral views of the chest HISTORY: Routine physical COMPARISON: Chest x-ray 11/30/[address] chest 03/15/2017 FINDINGS: The cardiomediastinal silhouette is normal. There is no pneumothorax or pleural effusion. There is no consolidation, nodule or mass. Left calcified granuloma is stable. The osseous structur es are unchanged with fusion hardware in the cervical spine and right shoulder. IMPRESSION: No acute cardiopulmonary process
[2017-04-02 09:08] LABS: BASOPHILS % (AUTO) 0.4 % (0.0-3.0); EOSINOPHILS # (AUTO) 0.1 K/ul (0.0-0.7); EOSINOPHILS % (AUTO) 0.7 % (0.0-7.0); HEMATOCRIT 45.8 % (42.0-52.0); HEMOGLOBIN 15.7 g/dl (14.0-18.0); IMMATURE GRANULOCYTE % (AUTO) 0.8 % (0.0-5.0); LYMPHOCYTES # (AUTO) 2.1 K/uL (0.60-3.4); LYMPHOCYTES % (AUTO) 22.4 (10.0-50.0); MEAN CORPUSCULAR HEMOGLOBIN 29.3 pg (27.0-31.0); MEAN CORPUSCULAR HGB CONC 34.3 (31.8-35.4); MEAN CORPUSCULAR VOLUME 85.6 fl (80.0-94.0); MONOCYTES # (AUTO) 0.7 K/uL (0.4-2.0); MONOCYTES % (AUTO) 7.7 (0-10); NEUTROPHILS # (AUTO) 6.5 K/ul (2.0-6.9); PLATELET COUNT 228 10^3/uL (140-440); RED BLOOD COUNT 5.35 10^6/ul (4.70-6.10); WHITE BLOOD COUNT 9.52 K/ul (4.2-10.2)
[2017-04-02 09:10] LABS: BILIRUBIN,URINE Negative (NEGATIVE); KETONES,URINE Negative (NEGATIVE); LEUKOCYTE ESTERASE ,URINE Negative (NEGATIVE); NITRITE,URINE Negative (NEGATIVE); PH,URINE 5.5 (5-9); PROTEIN,URINE Negative (NEGATIVE); URINE, BLOOD Trace-intact (NEGATIVE)
[2017-04-02 09:12] LABS: ADD URINE MICROSCOPIC YES
[2017-04-02 09:25] LABS: COCAIN SCREEN,URINE NEGATIVE (NEGATIVE)
[2017-04-02 09:50] LABS: ALBUMIN 3.8 g/dL (3.4-5.0); ALBUMIN/GLOBULIN RATIO 0.88; ANION GAP 13.7; BILIRUBIN,TOTAL 0.98 mg/dL (0.00-1.20); BUN/CREATININE RATIO 12.82; CALCIUM 9.4 mg/dL (8.2-10.2); CHOL/HDL RATIO 4.8 (4.5-6.4); CREATININE 1.17 mg/dL (0.60-1.10); POTASSIUM 3.7 mmol/L (3.5-5.1); TOTAL PROTEIN 8.1 g/dL (6.4-8.2)
== END 2017-04-02 08:32 | disposition home or self-care (01) ==
LOC: LAB 08:31
PROVIDERS: ATTEND Family Medicine
DX: Z00.00 Encounter for general adult medical examination without abnormal findings (principal)
CPT/HCPCS: 36415; 80053; 80061; 80306; 81001; 84439; 84443; 85025

== ENCOUNTER 2017-10-17 15:16 | Outpatient (CLI) ==
[2017-03-19 10:24] VITALS: BMI 26.6
== END 2017-10-17 15:17 | disposition home or self-care (01) ==
LOC: RHC-LAB 15:16
PROVIDERS: ATTEND Emergency Medicine
DX: E78.5 Hyperlipidemia, unspecified (principal); I10 Essential (primary) hypertension; Z12.5 Encounter for screening for malignant neoplasm of prostate
CPT/HCPCS: 36415; 80053; 80061; 84443; 85025

== ENCOUNTER 2018-01-31 11:27 | Outpatient (CLI) | payer OTHER ==
[2017-03-19 10:24] VITALS: BMI 26.6
== END 2018-01-31 11:28 | disposition home or self-care (01) ==
LOC: FCC-LAB 11:27
PROVIDERS: ATTEND Nurse Practitioner Family
DX: L08.9 Local infection of the skin and subcutaneous tissue, unspecified (principal); I10 Essential (primary) hypertension; M25.50 Pain in unspecified joint; Z86.19 Personal history of other infectious and parasitic diseases
CPT/HCPCS: 36415; 80053; 85025; 85651; 86140

== ENCOUNTER 2018-07-11 10:35 | Outpatient (CLI) | payer OTHER ==
[2017-03-19 10:24] VITALS: BMI 26.6
== END 2018-07-11 10:36 | disposition home or self-care (01) ==
LOC: RHC-LAB 10:35 → FCC-LAB 10:36
PROVIDERS: ATTEND Nurse Practitioner Family
DX: R50.81 Fever presenting with conditions classified elsewhere (principal); R05 Cough
CPT/HCPCS: 87502

== ENCOUNTER 2018-10-14 23:05 | Emergency (ER) | payer OTHER ==
[2018-10-14 23:19] VITALS: BP 135/83; TEMP 99.4; BMI 29.2
[2018-10-14] MEDS ORDERED: SOLU-MEDROL 125 MG IM STA (23:43)
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
== END 2018-10-15 00:09 | disposition home or self-care (01) ==
LOC: ED 23:05
DX: L30.9 Dermatitis, unspecified (principal); F17.210 Nicotine dependence, cigarettes, uncomplicated
CPT/HCPCS: 96372; 99282